=== PATIENT | male | born 1965 | race Caucasian/White ===

== ENCOUNTER 2022-08-30 13:46 | Emergency (ER) | payer MEDICAID ==
[~2022-08-30] VITALS: Ht 170.2 cm; Wt 114.0 kg
[2022-08-30] MEDS ORDERED: TETANUS, DIPHTHERIA, PERTUSSIS VAC/PF 0.5ML (>10YR OLD) IM ONE ×2 (15:30→16:00)
[2022-08-30] MEDS ORDERED: CLINDAMYCIN PHOSPHATE 600MG/4ML VIAL IM ONE (15:30)
[2022-08-30] MEDS ORDERED: LIDOCAINE HCL/PF 1% 10 MG/ML 5ML VIAL INFIL ONE (15:30)
[2022-08-30] MEDS ORDERED: BACITRACIN ZINC OINT UDPKT TOP ONE (15:30)
[2022-08-30] MEDS ORDERED: HYDROCODONE/ACETAMINOPHEN 5/325MG TABLET PO ONE (15:30)
[2022-08-30] MEDS ORDERED: IBUPROFEN 600MG TABLET PO ONE (15:30)
[2022-08-30] MEDS ORDERED: CEFTRIAXONE SODIUM 1 G/VIAL IM ONE (15:45)
[2022-08-30] MEDS ORDERED: IBUPROFEN 600MG TABLET PO NR (15:45)
[2022-08-30] MEDS ORDERED: HYDROCODONE/ACETAMINOPHEN 5/325MG TABLET PO NR (15:45)
[2022-08-30] MEDS ORDERED: LIDOCAINE HCL/PF 1% 10 MG/ML 5ML VIAL INFIL NR (15:45)
[2022-08-30] MEDS ORDERED: BACITRACIN ZINC OINT UDPKT TOP NR (15:45)
[2022-08-30 17:37] LABS: BASOPHILS % 1.9 % (0.0-2.0); EOSINOPHILS % 6.8 % (0.0-5.0); HEMATOCRIT. 35.2 % (42.0-52.0); LYMPHOCYTES % 20.6 % (20.0-50.0); MEAN CORPUSCULAR HEMOGLOBIN 31.3 pg (28.0-32.0); MONOCYTES % 3.5 % (2.0-8.0); NEUTROPHILS % 67.2 % (40.0-76.0); PLATELET 549 x1000/uL (130-400); RED BLOOD CELL COUNT 3.82 mill/uL (4.7-6.1); RED CELL DISTRIBUTION WIDTH 13.2 % (11.6-14.6)
[2022-08-30 17:45] LABS: CHLORIDE 102 mEq/L (98-107)
[2022-08-30] MEDS ORDERED: CEPH500T MT (17:57)
[2022-08-30] MEDS ORDERED: NAPR500T7 MT (17:57)
[2022-08-30] MEDS ORDERED: SULF1TAB48 MT (17:57)
[2022-08-30] MEDS ORDERED: SODIUM CHLORIDE 0.9% 1,000 ML IV ONE (18:30)
[2022-08-30] MEDS ORDERED: HYDRALAZINE 20MG/ML VIAL IV ONE (21:00)
[2022-08-30 21:35] VITALS: BP 159/95
[2022-08-30] MEDS ORDERED: IOHEXOL-300 100 ML BOTTLE ONE (23:07)
== END 2022-08-30 21:55 | disposition short-term general hospital (02) ==
LOC: ER 13:46 → CANBEDREQ 19:25 → ER 21:55
DX: L02.31 Cutaneous abscess of buttock (principal); D64.9 Anemia, unspecified; J44.9 Chronic obstructive pulmonary disease, unspecified; I10 Essential (primary) hypertension
CPT/HCPCS: 36415; 74177; 80053; 83605; 85025; 87040; 90471; 90715; 96361; 96372; 96374; 99285; J0360; J0696; J3490; J7030; Q9967; Z7610

== ENCOUNTER 2022-11-15 00:48 | Emergency (ER) | payer MEDICAID ==
[~2022-11-15] VITALS: Ht 188 cm; Wt 109.0 kg
[~2022-11-15 00:48] MED LIST: CEPH500T MT; NAPR500T7 MT; SULF1TAB48 MT
[2022-11-15 00:50] VITALS: O2SAT 100
[2022-11-15] MEDS ORDERED: KETOROLAC 60MG/2ML VIAL IM ONE (01:30)
[2022-11-15] MEDS ORDERED: IBUP-2029 MT (01:56)
[2022-11-15] MEDS ORDERED: PENI500T MT (01:56)
[2022-11-15 01:58] VITALS: BP 196/126
[2022-11-15 02:07] VITALS: PULSE 75; RESP 18; TEMP 98.5
== END 2022-11-15 02:08 | disposition home or self-care (01) ==
LOC: ER 01:00
DX: K08.89 Other specified disorders of teeth and supporting structures (principal); I10 Essential (primary) hypertension; J44.9 Chronic obstructive pulmonary disease, unspecified
CPT/HCPCS: 96372; 99283; J1885; Z7610